=== PATIENT | male | born 1970 | race Caucasian/White ===

== ENCOUNTER 2017-04-16 21:16 | Emergency (ER) | payer BC ==
[2017-04-16] MEDS ORDERED: Ketorolac INJ* 30 MG/ML 1 ML VIAL IM ONE (21:53)
[2017-04-16] MEDS ORDERED: oxyCODONE/Acetamin 5/325 MG* TAB PO ONE (21:53)
--- NOTE | 2017-04-17 00:25 | ED ---
Irineo Esparza Jennifer, scribed for Jae Hansen MD on 04/16/17 at 2154 . Back Pain - HPI Summary HPI Summary: The patient is a 47 year old male who presents to the ED with severe back pain that began over two weeks ago. 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 He went to [employer] [place], where he was instructed to take off work for a week, but he went back to work one day later after feeling a little better. The patient reports he was laying on his left side when he felt something shift in the right side of his back. He reports that movement aggravates the pain and that when he moves his arm, his back begins to spasm. The pain radiates up to his ribs. The patient denies neck pain. - History of Current Complaint Chief Complaint: EDBackInjuryPain Stated Complaint: FALL 1 WEEK AGO, BACK INJURY Time Seen by Provider: 04/16/17 21:46 Hx Obtained From: Patient Onset/Duration: Lasting Weeks - over two weeks ago, Still Present, Worse Since Onset/Duration: Started Weeks Ago - over two weeks Timing: Constant Back Pain Location: Is Diffuse, Radiates To - ribs Severity Initially: Moderate Severity Currently: Severe Pain Intensity: 10 Pain Scale Used: 0-10 Numeric Aggravating Symptom(s): Movement - lifting arm Alleviating Symptom(s): Nothing - Allergies/Home Medications Allergies/Adverse Reactions: Allergies Allergy/AdvReac Type Severity Reaction Status Date / Time MS Penicillins [Penicillins] Allergy Unknown Unknown Verified 08/29/14 13:28 Reaction Details PMH/Surg Hx/FS Hx/Imm Hx Endocrine/Hematology History: Denies: Hx Diabetes, Hx Thyroid Disease Cardiovascular History: Denies: Hx Hypertension Respiratory History: Denies: Hx Asthma, Hx Chronic Obstructive Pulmonary Disease (COPD) GI History: Denies: Hx Ulcer Infectious Disease History: No Infectious Disease History: Denies: Hx Hepatitis, Hx Human Immunodeficiency Virus (HIV), Traveled Outside the [place] in Last 30 Days - Family History Known Family History: Negative: Diabetes - Social History Alcohol Use: Rare Substance Use Type: Reports: None Smoking Status (MU): Current Every Day Smoker Type: Cigarettes Amount Used/How Often: 1/2 PPD Review of Systems Negative: Fever Musculoskeletal: Negative - neck pain Positive: Myalgia - back pain All Other Systems Reviewed And Are Negative: Yes Physical Exam - Summary Physical Exam Summary: General: well-appearing, no pain distress Skin: warm, color reflects adequate perfusion, dry Head: normal Eyes: EOMI, YOAN ENT: normal Neck: supple, nontender Respiratory: CTA, breath sounds present Cardiovascular: RRR Abdomen: soft, nontender Bowel: present Musculoskeletal: Tender to the right of the thoracic spine at level of T8. Tender laterally over the ribs. Neurological: normal, sensory/motor intact, A&O x3 Psychological: affect/mood appropriate Triage Information Reviewed: Yes Vital Signs On Initial Exam: Initial Vitals Temp Pulse Resp BP Pulse Ox 98 F 95 24 139/92 100 04/16/17 21:24 04/16/17 21:24 04/16/17 21:24 04/16/17 21:24 04/16/17 21:24 Vital Signs Reviewed: Yes Diagnostics - Vital Signs Vital Signs Temp Pulse Resp BP Pulse Ox 04/16/17 21:24 98 F 95 24 139/92 100 - Laboratory Lab Statement: Any lab studies that have been ordered have been reviewed, and results considered in the medical decision making process. - Radiology Ribs with Chest XR Xray Interpretation: No Acute Changes - No fractures noted. Dr. Hansen has reviewed this report. Radiology Interpretation Completed By: Radiologist Back Pain Course/Dx - Course Course Of Treatment: BP noted and advised to follow up with PCP. Allergies noted. Medications reviewed. IMPROVED IN ED AFTER TORADOL AND A PERCOCET. I DID NOT SEE A RIB FRACTURE OR A PNEUMOTHORAX ON X-RAY. RADIOLOGIST READING PENDING. F/U PMD; RETURN IF WORSE. - Diagnoses Provider Diagnoses: Blood pressure elevated without history of HTN, Chest wall pain Discharge - Discharge Plan Condition: Stable Disposition: HOME Prescriptions: oxyCODONE/Acetamin 5/325 MG* [Percocet 5/325 TAB*] 1 tab PO Q4H PRN #20 tab MDD 6 PRN Reason: Pain Forms: *Work Release Referrals: Neeru Greer MAINTENANCE CARPENTER [Nurse Practitioner] - Additional Instructions: FOLLOW UP WITH YOUR DOCTOR. RETURN TO THE EMERGENCY DEPARTMENT FOR ANY WORSENING OF YOUR CONDITION OR QUESTIONS OR CONCERNS. Your blood pressure was elevated during todays visit; please follow up with your primary care provider within a week for further evaluation. The documentation as recorded by the Irineo bryan Jennifer accurately reflects the service I personally performed and the decisions made by me, Jae Hansen MD.
[2017-04-17 01:07] VITALS: BP 117/79
--- NOTE | 2017-04-17 09:55 | RAD ---
INDICATION: Right posterior lateral rib pain 2 weeks after a fall COMPARISON: None. TECHNIQUE: 4 views of the right ribs were obtained. FINDINGS: No fracture or significant focal osseous abnormality is seen. No pneumothorax is apparent. Limited views demonstrate grossly clear lungs. IMPRESSION: No radiographically apparent displaced rib fracture or pneumothorax. If the patient's symptoms persist, follow-up imaging is recommended.
== END 2017-04-17 01:07 | disposition home or self-care (01) ==
LOC: ED 21:16
DX: R03.0 Elevated blood-pressure reading, without diagnosis of hypertension (principal); R07.89 Other chest pain; Z88.0 Allergy status to penicillin; F17.210 Nicotine dependence, cigarettes, uncomplicated
CPT/HCPCS: 96372; 99282; A9270-GY; J1885

== ENCOUNTER 2017-04-21 15:58 | Emergency (ER) | payer BC ==
[2017-04-21 19:03] VITALS: BP 0/0
== END 2017-04-21 19:03 | disposition left against medical advice (07) ==
LOC: ED 15:58
DX: Z76.0 Encounter for issue of repeat prescription (principal); Z53.21 Procedure and treatment not carried out due to patient leaving prior to being seen by health care provider